=== PATIENT | male | born 1990 | race Hispanic/Latino ===

== ENCOUNTER 2023-01-04 18:34 | Emergency (ER) | payer SELFPAY ==
[~2023-01-04] VITALS: Ht 175.3 cm; Wt 76.2 kg
[~2023-01-04 18:34] MED LIST: NAPROSYN500 MG PO
[2023-01-04] MEDS ORDERED: NAPROXEN500 MG PO (21:44)
[2023-01-04] MEDS ORDERED: AMOXICILLIN500 MG PO (21:44)
[2023-01-04 21:59] VITALS: BP 112/70
== END 2023-01-04 22:12 | disposition home or self-care (01) | DRG 605 ==
LOC: ED 18:34
DX: S81.832A Puncture wound without foreign body, left lower leg, initial encounter (principal); F17.210 Nicotine dependence, cigarettes, uncomplicated; W20.8XXA Other cause of strike by thrown, projected or falling object, initial encounter

== ENCOUNTER 2024-07-20 19:10 | Emergency (ER) | payer SELFPAY ==
[~2024-07-20] VITALS: Ht 175.3 cm; Wt 86.0 kg
[~2024-07-20 19:10] MED LIST changes: +AMOXICILLIN500 MG PO; +NAPROXEN500 MG PO
[2024-07-20 20:01] VITALS: BP 135/89
[2024-07-20] MEDS ORDERED: SODIUM CHLORIDE 0.9% 1,000 ML IV ONE (20:05)
[2024-07-20] MEDS ORDERED: PROMETHAZINE HCL 25 MG/ML AMP IV ONE (20:05)
[2024-07-20 20:30] LABS: BASO% 0.2 % (0-3); EOS% 0.1 % (0-8); HEMATOCRIT 50.3 % (39.0-50.0); HEMOGLOBIN 17.8 g/dl (14.0-18.0); IMMATURE GRANULOCYTES 0.2 % (0.0-5.0); LYMPH% 11.8 % (15-41); MEAN CELL VOLUME 87.5 fL CALC (80.0-100.0); MEAN CORPUSCULAR HGB CONC 35.4 g/dL CAL (32.0-36.0); MONO% 5.8 % (2-13); NEUT# 9.91 thou/uL (1.82-7.42); NEUT% 81.9 % (42-76); RED BLOOD COUNT 5.75 mill/uL (4.70-6.10); RED CELL DISTRI WIDTH 11.6 % (11.5-15.5)
[2024-07-20 20:31] VITALS: BP 118/83
[2024-07-20 20:43] LABS: ALBUMIN 5.8 g/dL (3.2-5.0); CREATININE 1.9 mg/dL (0.7-1.3); POTASSIUM 4.3 mmol/l (3.5-5.1)
[2024-07-20 21:00] VITALS: BP 125/81
[2024-07-20 22:00] VITALS: BP 126/71
[2024-07-20] MEDS ORDERED: SODIUM CHLORIDE 0.9% 1,000 ML IV STA (22:19)
[2024-07-20 22:42] LABS: URINE BLOOD DIPSTICK Negative (NEGATIVE); URINE GLUCOSE - DIPSTICK Negative (NEGATIVE); URINE KETONE Trace mg/dL (NEGATIVE); URINE LEUK ESTERASE Negative (NEGATIVE); URINE NITRITE - DIPSTICK Negative (Negative); URINE PH 5.5 (4.5-8.0); URINE PROTEIN - DIPSTICK 30 mg/dL (NEG-TRACE); URINE SPECIFIC GRAVITY 1.025; URINE UROBILINOGEN - DIPSTICK 0.2 E.U./dL (0.2)
[2024-07-20 22:50] LABS: URINE COLOR Dark yellow
[2024-07-20 22:57] LABS: URINE CALCIUM OXALATE CRYSTALS MODERATE lpf; URINE HYALINE CAST FEW lpf (NONE-RARE); URINE RBC 0-2 RBC/hpf (0-5); URINE SQUAMOUS EPITHELIAL CELL FEW EPI/hpf (0-FEW)
[2024-07-20 23:00] VITALS: BP 112/79
[2024-07-20] MEDS ORDERED: ONDANSETRON4 MG PO (23:03)
[2024-07-20 23:17] VITALS: BP 112/79
== END 2024-07-20 23:17 | disposition home or self-care (01) | DRG 641 ==
LOC: ED 19:10
PROVIDERS: Family Medicine
DX: E86.0 Dehydration (principal); N17.9 Acute kidney failure, unspecified; F17.200 Nicotine dependence, unspecified, uncomplicated; Z20.822 Contact with and (suspected) exposure to COVID-19; X50.9XXA Other and unspecified overexertion or strenuous movements or postures, initial encounter; Y99.0 Civilian activity done for income or pay